=== PATIENT | male | born 1960 | race Caucasian/White ===

== ENCOUNTER 2017-02-26 07:35 | Day surgery (SDC) | payer MEDICARE, MEDICAID ==
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
[~2017-02-26 07:35] MED LIST: Dexamethasone 4 MG/ML SDV ONE; EPINEPHrine 1 MG/ML 30 ML MDV ONE; EPINEPHrine 1 MG/ML SDV ONE; Lactated Ringers 1,000 ML IV SCH; Lactated Ringers 1,000 ML ONE; Lidocaine 1% 4 ML ONE; Lidocaine 1%/Sod Bicarbonate in NS 8.4% 1 ML Syringe IV PRN; Midazolam 1 MG/ML 2 ML SDV ONE; Ondansetron 4 MG/2 ML SDV ONE; Propofol 200 MG/20 ML SDV ONE; Ropivacaine 0.5% 5 MG/ML 30 ML SDV ONE; Sodium Chloride 0.9% 10 ML Syringe FLUSH PRN; ceFAZolin 1 GM Vial ONE; fentaNYL 250 MCG/5 ML SDV ONE
[2017-02-26] MEDS ORDERED: Bupivacaine 0.25% 30 ML SDV ONE (08:19)
[2017-02-26] MEDS ORDERED: Albuterol 0.083% 2.5 MG/3 ML Neb Soln NEB ONE (08:33)
[2017-02-26] MEDS ORDERED: Ketamine 500 mg/10 ML MDV ONE (08:47)
[2017-02-26] MEDS ORDERED: HYDROmorphone 1 MG/ML Syringe ONE (09:27)
[2017-02-26] MEDS ORDERED: Haloperidol Lactate 5 MG/ML SDV IVPUSH ONE (10:25)
[2017-02-26] MEDS ORDERED: fentaNYL 100 MCG/2 ML SDV IVPUSH PRN (10:25)
[2017-02-26] MEDS ORDERED: HYDROmorphone 0.5 MG/0.5 ML Syringe IVPUSH PRN (10:25)
--- NOTE | 2017-02-26 10:45 | PCM.SN ---
- Free Text/Narrative Note: Anesthesia Note: (Interscalene block note) (Dr. Muñoz present for the block) Date: 02/26/2017 Time Out: 0826 Start: 0815 Stop: 0840 Surgical Procedure: Right Shoulder Video Arthroscopy with Rotator Cuff Repair, Subacromial Decompression. Diagnosis: Right Shoulder Rotator Cuff Tear Current Procedure: Right interscalene block under US guidance for postoperative pain control requested by Dr. Greenberg. Patient chart reviewed, risk/benefits discussed with patient, consent obtained. Patient positioned supine, monitors/alarms on, oxygen placed via nasal cannula at 2 LPM. IV sedation administered: Versed 2mg IV @ 0828 Fentanyl 50 mcg IV @ 0829 Right shoulder prepped with two chloropreps. Sterile drapes placed with aseptic technique noted. Under US guidance, right subclavian artery visualized along with the right brachial plexus. Plexus followed up to C6 cricoid level, and area localized with 2mls of 1% lidocaine. 22gauge 2 inch stimiplex needle advanced under US with 0.5mV with stimulation of biceps noted. Good stimulation noted with decreased voltage and absent at 0.2mVs. 1ml of Normal Saline injected with loss of stimulation noted to confirm needle not placed intraneurally. Incremental dosing of 5mls with negative aspiration noted prior to each injection of 0.5% ropivacaine with 1:200,000 epinephrine. Total volume=25mls. Vital Signs: HR: 67 RR: 18 BP: 133/86 Spo2: 98% on 2 LPM nasal cannula HR: 67 RR: 21 BP: 145/85 Spo2: 97% on 2LPM nasal cannula HR: 66 RR: 21 BP: 145/85 Spo2: 98% on 2 LPM nasal cannula
--- NOTE | 2017-02-26 12:04 | PCM.POSTAN ---
POST ANESTHESIA ASSESSMENT - MENTAL STATUS Mental Status: Alert, Oriented - VITAL SIGNS Pulse Rate: 88 SaO2: 97 Resp Rate: 19 Blood Pressure: 172/98 Temperature: 36.9 C - RESPIRATORY Respiratory Status: Respiratory Rate WNL, Airway Patent, O2 Saturation Stable, Supplemental Oxygen - CARDIOVASCULAR CV Status: Pulse Rate WNL, Blood Pressure Stable - GASTROINTESTINAL GI Status: No Symptoms - PAIN Pain Score: 0 - POST OP HYDRATION Hydration Status: Adequate & Stable
--- NOTE | 2017-02-26 12:04 | PCM48HPAN ---
Post Anesthesia Note - EVALUATION WITHIN 48HRS OF ANESTHETIC Vital Signs in Normal Range: Yes Patient Participated in Evaluation: Yes Respiratory Function Stable: Yes Airway Patent: Yes Cardiovascular Function Stable: Yes Hydration Status Stable: Yes Pain Control Satisfactory: Yes Nausea and Vomiting Control Satisfactory: Yes Mental Status Recovered: Yes
[2017-02-26 12:56] VITALS: BP 135/93
--- NOTE | 2017-03-03 05:09 | PCM.OPNOTE ---
- General Post-Op/Procedure Note Date of Surgery/Procedure: 02/26/17 Operative Procedure(s): right shoulder video arthroscopy with small rotator cuff repair, subacromial decompression and limited debridement Pre Op Diagnosis: right shoulder rotator cuff tear Post-Op Diagnosis: Same Anesthesia Technique: General ET Tube, Regional Block Primary Surgeon: Reggie Greenberg Anesthesia Provider: Rosey Donaldson Deck Scaler: Kathy Campbell EBL in mLs: 5 Complications: None Condition: Good
--- NOTE | 2017-03-03 05:51 | OR ---
DATE OF OPERATION: 02/26/2017 SURGEON: Reggie Greenberg MD OPERATION PERFORMED: Right shoulder video arthroscopy with small rotator cuff repair, subacromial decompression, and limited debridement. PREOPERATIVE DIAGNOSIS: Right shoulder rotator cuff tear. POSTOPERATIVE DIAGNOSIS: Right shoulder rotator cuff tear. ANESTHESIA: General endotracheal intubation with regional interscalene block. ANESTHESIA PROVIDER: Graciela Keene. TIP INSERTER: Kathy Campbell PA-C. ESTIMATED BLOOD LOSS: Less than 5 mL. COMPLICATIONS: None. CONDITION: Stable. DESCRIPTION OF PROCEDURE: The patient was identified in the preoperative holding area. Proper site was marked and signed by the surgeon. The patient was taken back to the operating theater, where after adequate anesthesia, the patient's right upper extremity had 15 pounds of traction applied and was sterilely prepped and draped in the usual sterile fashion. OR-wide time-out was performed. The patient received 2 grams of IV Ancef. At this time, standard posterior incision was made. The scope trocar was introduced into the glenohumeral joint. The patient was noted to have significant synovitis, and there was a small rotator cuff tear noted at the supraspinatus tendon. Anterior portal was then created. The biceps tendon was intact. Subscapularis tendon was intact. There was no sign of chondromalacia noted. At this time, debridement was done of the synovitis. At this time, attention was turned to the subacromial space. A lateral portal was created and a limited debridement of the bursa was carried out in the subacromial space. The patient was noted to have a type-2 acromion. At this time, with a 4-0 full-radius bur, I was able to bring this to a smooth border with type 1 acromion performing an acromioplasty at this time. After this was completed, there was noted to be a small tear at the footprint of the supraspinatus. At this time, it was more at the edge of the footprint and tendon junction. At this time, a FiberTape was passed in a horizontal mattress stitch fashion. This was placed through an Arthrex 4.75 mm SwiveLock anchor and then this was placed out laterally and found to be secure. There was adequate watertight repair of the small rotator cuff tear of the supraspinatus. At this time, excess saline was drained from the shoulder. 3-0 nylon simple suture was used for closure of the skin. The patient was placed in a sterile soft dressing and a pillow sling, and sent to the PACU in a stable condition. ROSA MARIA /[id number]
== END 2017-02-26 12:40 | disposition home or self-care (01) ==
LOC: JD.SDS 07:35
PROVIDERS: ATTEND Orthopaedic Surgery
DX: M75.111 Incomplete rotator cuff tear or rupture of right shoulder, not specified as traumatic (principal); M65.811 Other synovitis and tenosynovitis, right shoulder; M19.90 Unspecified osteoarthritis, unspecified site; J44.9 Chronic obstructive pulmonary disease, unspecified; E78.1 Pure hyperglyceridemia; I10 Essential (primary) hypertension; E87.1 Hypo-osmolality and hyponatremia; E11.9 Type 2 diabetes mellitus without complications; F32.9 Major depressive disorder, single episode, unspecified; F41.9 Anxiety disorder, unspecified; F17.210 Nicotine dependence, cigarettes, uncomplicated; Z90.49 Acquired absence of other specified parts of digestive tract; Z98.1 Arthrodesis status; Z98.890 Other specified postprocedural states; Z79.899 Other long term (current) drug therapy; Z79.82 Long term (current) use of aspirin; Z88.8 Allergy status to other drugs, medicaments and biological substances; Z88.1 Allergy status to other antibiotic agents; Z88.6 Allergy status to analgesic agent
CPT/HCPCS: 29826; 29827; 82962; 87641; 94640; J0171; J0690; J1100; J1170; J2250; J2405; J2795; J3010; J3490; J7120; 01630; 64415; J2001; J2704

== ENCOUNTER 2017-03-15 04:23 | Emergency (ER) | payer MEDICARE, MEDICAID ==
[2017-03-15 04:37] VITALS: BP 149/90
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
== END 2017-03-15 05:10 | disposition home or self-care (01) ==
LOC: JD.ED 04:23
DX: G89.18 Other acute postprocedural pain (principal); M25.511 Pain in right shoulder; E11.9 Type 2 diabetes mellitus without complications; I10 Essential (primary) hypertension; F17.210 Nicotine dependence, cigarettes, uncomplicated; E78.00 Pure hypercholesterolemia, unspecified; Z79.84 Long term (current) use of oral hypoglycemic drugs; Z88.1 Allergy status to other antibiotic agents; Z88.5 Allergy status to narcotic agent; Z88.8 Allergy status to other drugs, medicaments and biological substances; Z79.82 Long term (current) use of aspirin; Z79.899 Other long term (current) drug therapy
CPT/HCPCS: 99282; 99283

== ENCOUNTER 2017-05-12 08:58 | Day surgery (SDC) | payer MEDICARE, MEDICAID ==
[~2017-05-12 08:58] MED LIST changes: +Cefuroxime 10 MG/ML SYRINGE EYERT SCH; -Dexamethasone 4 MG/ML SDV ONE; -EPINEPHrine 1 MG/ML 30 ML MDV ONE; -EPINEPHrine 1 MG/ML SDV ONE; -Lactated Ringers 1,000 ML IV SCH; -Lactated Ringers 1,000 ML ONE; -Lidocaine 1% 4 ML ONE; +Lidocaine 1% PF 2 ML SDV INJECT SCH; -Lidocaine 1%/Sod Bicarbonate in NS 8.4% 1 ML Syringe IV PRN; -Midazolam 1 MG/ML 2 ML SDV ONE; -Ondansetron 4 MG/2 ML SDV ONE; +Pilocarpine 4% Ophth Soln 15 ML Bot EYERT SCH; -Propofol 200 MG/20 ML SDV ONE; -Ropivacaine 0.5% 5 MG/ML 30 ML SDV ONE; -Sodium Chloride 0.9% 10 ML Syringe FLUSH PRN; -ceFAZolin 1 GM Vial ONE; -fentaNYL 250 MCG/5 ML SDV ONE
[2017-05-12] MEDS: Polymyxin B/Trimethoprim 10 ML Bottle EYERT SCH ×3 (10:44→12:41)
[2017-05-12] MEDS: Brimonidine 0.2% Ophth Soln 5 ML Bottle EYERT SCH ×3 (10:52→12:41)
[2017-05-12] MEDS: Phenylephrine 2.5% Ophth Soln 2 ML Bot EYERT SCH ×5 (11:01→12:24)
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
[2017-05-12] MEDS: Tetracaine HCl/PF 0.5% 4 ML Bottle EYERT SCH ×3 (12:09→12:41)
[2017-05-12 12:50] VITALS: BP 158/90
--- NOTE | 2017-05-12 12:50 | PCM48HPAN ---
Post Anesthesia Note - EVALUATION WITHIN 48HRS OF ANESTHETIC Vital Signs in Normal Range: Yes Patient Participated in Evaluation: Yes Respiratory Function Stable: Yes Airway Patent: Yes Cardiovascular Function Stable: Yes Hydration Status Stable: Yes Pain Control Satisfactory: Yes Nausea and Vomiting Control Satisfactory: Yes Mental Status Recovered: Yes Pulse Rate: 65 SaO2: 96 Resp Rate: 16 Temperature: 36.8 C Blood Pressure: 158/90 Pulse Rate: 65
== END 2017-05-12 12:54 | disposition home or self-care (01) ==
LOC: JD.SDS 08:58
PROVIDERS: ATTEND Ophthalmology
DX: H25.813 Combined forms of age-related cataract, bilateral (principal); H02.834 Dermatochalasis of left upper eyelid; H02.831 Dermatochalasis of right upper eyelid; H16.103 Unspecified superficial keratitis, bilateral; H16.223 Keratoconjunctivitis sicca, not specified as Sjogren's, bilateral; E11.9 Type 2 diabetes mellitus without complications; M19.90 Unspecified osteoarthritis, unspecified site; J44.9 Chronic obstructive pulmonary disease, unspecified; I10 Essential (primary) hypertension; F17.210 Nicotine dependence, cigarettes, uncomplicated; F41.9 Anxiety disorder, unspecified; F32.9 Major depressive disorder, single episode, unspecified; E78.00 Pure hypercholesterolemia, unspecified; Z98.890 Other specified postprocedural states; Z90.49 Acquired absence of other specified parts of digestive tract; Z96.659 Presence of unspecified artificial knee joint; Z79.899 Other long term (current) drug therapy; Z79.84 Long term (current) use of oral hypoglycemic drugs; Z88.1 Allergy status to other antibiotic agents; Z88.8 Allergy status to other drugs, medicaments and biological substances
CPT/HCPCS: 66984; C1780; J0697; A9270-GY

== ENCOUNTER 2017-06-11 06:51 | Day surgery (SDC) | payer MEDICARE, MEDICAID ==
[~2017-06-11 06:51] MED LIST changes: +Cefuroxime 10 MG/ML SYRINGE EYELF SCH; -Cefuroxime 10 MG/ML SYRINGE EYERT SCH; +Pilocarpine 4% Ophth Soln 15 ML Bot EYELF SCH; -Pilocarpine 4% Ophth Soln 15 ML Bot EYERT SCH
[2017-06-11] MEDS: Polymyxin B/Trimethoprim 10 ML Bottle EYELF SCH ×3 (07:07→08:40)
[2017-06-11] MEDS: Brimonidine 0.2% Ophth Soln 5 ML Bottle EYELF SCH ×3 (07:13→08:40)
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
[2017-06-11] MEDS: Phenylephrine 2.5% Ophth Soln 2 ML Bot EYELF SCH ×5 (07:16→08:18)
[2017-06-11] MEDS: Tropicamide 1% Ophth Soln 3 ML Bottle EYELF SCH ×4 (07:21→08:03)
[2017-06-11] MEDS: Tetracaine HCl/PF 0.5% 4 ML Bottle EYELF SCH ×2 (08:08→08:32)
--- NOTE | 2017-06-11 08:47 | PCM48HPAN ---
Post Anesthesia Note - EVALUATION WITHIN 48HRS OF ANESTHETIC Vital Signs in Normal Range: Yes Patient Participated in Evaluation: Yes Respiratory Function Stable: Yes Airway Patent: Yes Cardiovascular Function Stable: Yes Hydration Status Stable: Yes Pain Control Satisfactory: Yes Nausea and Vomiting Control Satisfactory: Yes Mental Status Recovered: Yes Pulse Rate: 68 SaO2: 99 Resp Rate: 16 Temperature: 36.2 C Blood Pressure: 115/74
[2017-06-11 08:58] VITALS: BP 113/69
== END 2017-06-11 08:50 | disposition home or self-care (01) ==
LOC: JD.SDS 06:51
PROVIDERS: ATTEND Ophthalmology
DX: H26.9 Unspecified cataract (principal); I10 Essential (primary) hypertension; E11.9 Type 2 diabetes mellitus without complications; J44.9 Chronic obstructive pulmonary disease, unspecified; Z79.899 Other long term (current) drug therapy; Z88.1 Allergy status to other antibiotic agents; Z88.8 Allergy status to other drugs, medicaments and biological substances; F17.210 Nicotine dependence, cigarettes, uncomplicated
CPT/HCPCS: 66984; C1780; J0697; A9270-GY

== ENCOUNTER 2018-08-22 08:48 | Emergency (ER) | payer MEDICARE, OTHER ==
[2018-08-22] MEDS ORDERED: HYDROmorphone 1 MG/ML Syringe IM ONE (09:10)
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
[2018-08-22 10:11] VITALS: BP 151/92
--- NOTE | 2018-08-23 08:02 | CR ---
Left shoulder: Three views of the left shoulder were obtained. Comparison: No prior left shoulder imaging. Mild degenerative change is noted within the acromioclavicular joint. Glenohumeral joint appears within normal limits. No fracture, dislocation or other bony abnormality is appreciated. Impression: 1. Mild degenerative change within the acromioclavicular joint. 2. Nothing acute is appreciated on left shoulder imaging. Diagnostic code #2
== END 2018-08-22 10:01 | disposition home or self-care (01) ==
LOC: JD.ED 08:48
DX: S40.012A Contusion of left shoulder, initial encounter (principal); I10 Essential (primary) hypertension; F41.9 Anxiety disorder, unspecified; E11.9 Type 2 diabetes mellitus without complications; Z88.5 Allergy status to narcotic agent; Z88.8 Allergy status to other drugs, medicaments and biological substances; Z79.899 Other long term (current) drug therapy; Z90.49 Acquired absence of other specified parts of digestive tract; Z88.1 Allergy status to other antibiotic agents; W01.198A Fall on same level from slipping, tripping and stumbling with subsequent striking against other object, initial encounter
CPT/HCPCS: 73030; 96372; 99283; J1170

== ENCOUNTER 2019-08-14 20:12 | Emergency (ER) | payer MEDICARE, OTHER ==
[2019-08-14 20:27] VITALS: BP 156/103; PULSE 89
[2019-08-14] MEDS ORDERED: Insulin Regular, Human 100 Units/ML 3 ML Vial IV STA (21:07)
[2019-08-14] MEDS ORDERED: Lactated Ringers 1,000 ML IV ONE (21:07)
[2019-08-14] MEDS ORDERED: Diatrizoate Meglumine/Diatrizoate Sodium 37% 120 ML Bottle PO ONE (21:16)
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
[2019-08-14] MEDS ORDERED: Iopamidol 612 MG/ML 100 ML Bottle IVPUSH ONE (22:22)
[2019-08-14] MEDS ORDERED: Sodium Chloride 0.9% 10 ML Syringe FLUSH PRN (22:22)
[2019-08-14] MEDS ORDERED: Iopamidol 612 MG/ML 50 ML SDV IVPUSH ONE (22:26)
--- NOTE | 2019-08-15 07:28 | CR ---
Chest: 2 views of the chest were obtained. Comparison: Prior chest x-ray of 09/05/13. Calcification is noted within the right lung base which is stable. Lungs are clear with no acute parenchymal change. Bony structures shows degenerative endplate spurring within the spine. Heart size is within normal limits. Impression: 1. Stable calcification within the right lung base. 2. Nothing acute is appreciated. Diagnostic code #2 This report was dictated in MDT
--- NOTE | 2019-08-15 07:38 | CT ---
CT abdomen and pelvis Technique: Multiple axial sections were obtained from above the dome of the diaphragm inferiorly through the pubic symphysis. Intravenous and oral contrast was utilized. Delayed images were also obtained through the bladder. Comparison: No prior abdominal imaging. Findings: Calcification is identified within the right lung base measuring 1.5 cm which has a benign appearance. Liver contains no focal abnormality. Spleen appears within normal limits. Adrenal glands show no nodule. Kidneys show symmetric contrast enhancement without hydronephrosis. Small low density cortical lesion is noted within the mid right kidney measuring about 5 mm. This finding is too small to characterize by Hounsfield unit measurements but statistically is most likely due to a small cyst. Pancreas is within normal limits. Gallbladder contains no calcified gallstones. Aorta shows minimal atherosclerotic change without aneurysm. No retroperitoneal adenopathy or mesenteric abnormalities are seen. No pelvic mass or adenopathy is seen. Appendix is not visualized with certainty. Delayed images shows contrast within the distal ureters and within the bladder. Asymmetric prominence of the right seminal vesicle is seen as compared to the left side which I believe is incidental. Bone window settings were reviewed which shows previous surgery at L5-S1. Nothing acute is appreciated within the visualized osseous structures. Impression: 1. Findings as noted above believed to be incidental. 2. Nothing acute is identified on CT study of the abdomen and pelvis. Diagnostic code #2 This report was dictated in MDT I agree with preliminary report from [facility], finalized on 08/15/19, 12:03 AM Central Daylight Time
== END 2019-08-15 00:15 | disposition home or self-care (01) ==
LOC: JD.ED 20:12
DX: E11.65 Type 2 diabetes mellitus with hyperglycemia (principal); E78.00 Pure hypercholesterolemia, unspecified; I10 Essential (primary) hypertension; F41.9 Anxiety disorder, unspecified; E66.9 Obesity, unspecified; F17.210 Nicotine dependence, cigarettes, uncomplicated; Z68.36 Body mass index [BMI] 36.0-36.9, adult; Z88.1 Allergy status to other antibiotic agents; Z88.8 Allergy status to other drugs, medicaments and biological substances; Z88.5 Allergy status to narcotic agent; Z79.899 Other long term (current) drug therapy; Z79.84 Long term (current) use of oral hypoglycemic drugs; Z79.82 Long term (current) use of aspirin
CPT/HCPCS: 36415; 36600; 71046; 74177; 80053; 81003; 82009; 82803; 82962; 83605; 83735; 85007; 85027; 93005; 96360; 96361; 99284; J1815; J7120; Q9963; Q9967; 93010

== ENCOUNTER 2020-02-16 18:13 | Emergency (ER) | payer MEDICARE, OTHER, MEDICAID ==
[2020-02-16 18:25] VITALS: BP 120/78; PULSE 88
--- NOTE | 2020-02-16 19:52 | CR ---
Bilateral knees: 4 views of both knees were obtained. 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 Lateral compartment of the left knee shows mild osteophyte. Osteophytes are noted off the left patella. Mild osteophyte is noted off the lateral right tibia. Small osteophyte is noted off the right patella. No acute fracture or other bony abnormality is appreciated. Impression: 1. Prior surgery with mild degenerative change. 2. Nothing acute is definitely appreciated. Diagnostic code #2
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
== END 2020-02-16 20:09 | disposition home or self-care (01) ==
LOC: JD.ED 18:13
DX: S80.01XA Contusion of right knee, initial encounter (principal); S80.02XA Contusion of left knee, initial encounter; E78.00 Pure hypercholesterolemia, unspecified; I10 Essential (primary) hypertension; J44.9 Chronic obstructive pulmonary disease, unspecified; F41.9 Anxiety disorder, unspecified; E11.9 Type 2 diabetes mellitus without complications; F17.210 Nicotine dependence, cigarettes, uncomplicated; E66.9 Obesity, unspecified; Z68.37 Body mass index [BMI] 37.0-37.9, adult; Z88.0 Allergy status to penicillin; Z88.1 Allergy status to other antibiotic agents; Z88.5 Allergy status to narcotic agent; Z88.8 Allergy status to other drugs, medicaments and biological substances; Z79.82 Long term (current) use of aspirin; Z79.4 Long term (current) use of insulin; Z79.899 Other long term (current) drug therapy; W22.8XXA Striking against or struck by other objects, initial encounter; Y93.01 Activity, walking, marching and hiking
CPT/HCPCS: 735642650; 73564-50; 99283-25

== ENCOUNTER 2021-02-11 16:52 | Emergency (ER) | payer MEDICARE, OTHER ==
[2021-02-11] MEDS ORDERED: Sodium Chloride 0.9% 10 ML Syringe FLUSH PRN (16:59)
[2021-02-11 17:02] VITALS: BP 111/75; PULSE 88
--- NOTE | 2021-02-11 17:36 | CR ---
Chest: Portable view of the chest was obtained. Comparison: Prior chest x-ray of 08/14/19. Stable granuloma is noted within the right lung base. A portion of the inferior left lung base was not included on this exam. Lungs otherwise are clear. Heart size and mediastinum are normal. Prior cervical spine surgery is seen. Impression: 1. Stable findings as described above. 2. Nothing acute is seen on portable chest x-ray. Diagnostic code #2
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
== END 2021-02-11 17:55 | disposition left against medical advice (07) ==
LOC: JD.ED 16:52
DX: R07.9 Chest pain, unspecified (principal); E78.00 Pure hypercholesterolemia, unspecified; I10 Essential (primary) hypertension; J44.9 Chronic obstructive pulmonary disease, unspecified; E11.9 Type 2 diabetes mellitus without complications; E66.9 Obesity, unspecified; Z68.36 Body mass index [BMI] 36.0-36.9, adult; Z72.0 Tobacco use; Z88.0 Allergy status to penicillin; Z88.1 Allergy status to other antibiotic agents; Z88.5 Allergy status to narcotic agent; Z88.6 Allergy status to analgesic agent; Z88.8 Allergy status to other drugs, medicaments and biological substances; Z79.82 Long term (current) use of aspirin; Z79.4 Long term (current) use of insulin; Z79.899 Other long term (current) drug therapy
CPT/HCPCS: 71045; 71045-26; 93005; 93010; 99284; 99285-25

== ENCOUNTER 2021-08-04 10:29 | Emergency (ER) | payer OTHER, MEDICARE ==
[2021-08-04 10:37] VITALS: BP 139/94; PULSE 86
[2021-08-04 11:19] LABS: ESTIMATED GFR > 60 mL/min (>60)
== END 2021-08-04 12:15 ==
LOC: JD.ED 10:29
DX: R07.89 Other chest pain (principal); J44.9 Chronic obstructive pulmonary disease, unspecified; E78.00 Pure hypercholesterolemia, unspecified; I10 Essential (primary) hypertension; E11.9 Type 2 diabetes mellitus without complications; E66.9 Obesity, unspecified; Z68.30 Body mass index [BMI] 30.0-30.9, adult; Z79.899 Other long term (current) drug therapy; Z79.82 Long term (current) use of aspirin; Z79.4 Long term (current) use of insulin; Z90.49 Acquired absence of other specified parts of digestive tract; Z88.0 Allergy status to penicillin; Z88.5 Allergy status to narcotic agent; Z88.8 Allergy status to other drugs, medicaments and biological substances; Z88.6 Allergy status to analgesic agent; V49.40XA Driver injured in collision with unspecified motor vehicles in traffic accident, initial encounter; Y92.410 Unspecified street and highway as the place of occurrence of the external cause
CPT/HCPCS: 36415; 70450; 70450-26; 71101-26-RT; 71101-RT; 72170; 72170-26; 80053; 80306; 80307; 85025; 99283; 99285-25

== ENCOUNTER 2021-08-05 12:31 | Emergency (ER) | payer OTHER, MEDICARE ==
[2021-08-05] MEDS ORDERED: Sodium Chloride 0.9% 10 ML Syringe FLUSH PRN ×2 (13:09→13:13)
[2021-08-05] MEDS ORDERED: HYDROmorphone 0.5 MG/0.5 ML Syringe IVPUSH ONE (13:10)
[2021-08-05] MEDS ORDERED: Iopamidol 612 MG/ML 100 ML Bottle IVPUSH ONE (13:13)
[2021-08-05] MEDS ORDERED: Iopamidol 612 MG/ML 50 ML SDV IVPUSH ONE (13:13)
[2021-08-05 13:48] LABS: ESTIMATED GFR > 60 mL/min (>60)
[2021-08-05 14:04] VITALS: BP 109/78; PULSE 64
== END 2021-08-05 15:00 | disposition home or self-care (01) ==
LOC: JD.ED 12:31
DX: S22.41XA Multiple fractures of ribs, right side, initial encounter for closed fracture (principal); E78.00 Pure hypercholesterolemia, unspecified; I10 Essential (primary) hypertension; J44.9 Chronic obstructive pulmonary disease, unspecified; E11.9 Type 2 diabetes mellitus without complications; F17.210 Nicotine dependence, cigarettes, uncomplicated; E66.9 Obesity, unspecified; Z68.30 Body mass index [BMI] 30.0-30.9, adult; Z88.0 Allergy status to penicillin; Z88.8 Allergy status to other drugs, medicaments and biological substances; Z88.5 Allergy status to narcotic agent; Z79.82 Long term (current) use of aspirin; Z79.4 Long term (current) use of insulin; V49.40XA Driver injured in collision with unspecified motor vehicles in traffic accident, initial encounter; Y92.410 Unspecified street and highway as the place of occurrence of the external cause
CPT/HCPCS: 36415; 70450; 71260; 72125; 74177; 80053; 83690; 85025; 96374; 99284; J1170; J3490; Q9967

== ENCOUNTER 2021-08-08 11:39 | Emergency (ER) | payer OTHER, MEDICARE ==
[2021-08-08 11:47] VITALS: BP 118/79; PULSE 68
[2021-08-08] MEDS ORDERED: Dextrose 5%-0.9% NaCl 1,000 ML IV SCH (12:15)
[2021-08-08 13:09] LABS: HEMOGLOBIN A1C 7.6 %
== END 2021-08-08 14:00 | disposition home or self-care (01) ==
LOC: JD.ED 11:39
DX: S22.41XA Multiple fractures of ribs, right side, initial encounter for closed fracture (principal); E78.00 Pure hypercholesterolemia, unspecified; I10 Essential (primary) hypertension; J44.9 Chronic obstructive pulmonary disease, unspecified; E11.9 Type 2 diabetes mellitus without complications; Z88.0 Allergy status to penicillin; Z88.5 Allergy status to narcotic agent; Z88.8 Allergy status to other drugs, medicaments and biological substances; Z79.82 Long term (current) use of aspirin; Z79.899 Other long term (current) drug therapy; Z79.4 Long term (current) use of insulin; V89.2XXA Person injured in unspecified motor-vehicle accident, traffic, initial encounter; Y92.410 Unspecified street and highway as the place of occurrence of the external cause
CPT/HCPCS: 36415; 70450; 71250; 80053; 81001; 83036; 83735; 83880; 85025; 86140; 93005; 96360; 99284; J7042

== ENCOUNTER 2021-11-09 05:30 | Emergency (ER) | payer MEDICARE, OTHER ==
[2021-11-09 05:45] VITALS: BP 177/105; PULSE 92
[2021-11-09] MEDS ORDERED: HYDROmorphone 0.5 MG/0.5 ML Syringe IVPUSH ONE ×2 (06:12→08:35)
[2021-11-09] MEDS ORDERED: Ondansetron 4 MG/2 ML SDV IVPUSH ONE (06:12)
[2021-11-09] MEDS ORDERED: Sodium Chloride 0.9% 1,000 ML IV SCH (06:15)
[2021-11-09] MEDS ORDERED: Iopamidol 612 MG/ML 100 ML Bottle IVPUSH ONE (06:38)
[2021-11-09] MEDS ORDERED: Iopamidol 612 MG/ML 50 ML SDV IVPUSH ONE (06:38)
[2021-11-09 07:12] LABS: ESTIMATED GFR 100 mL/min (>60)
== END 2021-11-09 08:48 | disposition home or self-care (01) ==
LOC: JD.ED 05:30
DX: S22.41XA Multiple fractures of ribs, right side, initial encounter for closed fracture (principal); J44.9 Chronic obstructive pulmonary disease, unspecified; E78.00 Pure hypercholesterolemia, unspecified; I10 Essential (primary) hypertension; E11.9 Type 2 diabetes mellitus without complications; F17.210 Nicotine dependence, cigarettes, uncomplicated; E66.9 Obesity, unspecified; Z68.34 Body mass index [BMI] 34.0-34.9, adult; Z88.1 Allergy status to other antibiotic agents; Z88.5 Allergy status to narcotic agent; Z88.8 Allergy status to other drugs, medicaments and biological substances; Z88.6 Allergy status to analgesic agent; Z79.82 Long term (current) use of aspirin; Z79.4 Long term (current) use of insulin; Z90.49 Acquired absence of other specified parts of digestive tract; W08.XXXA Fall from other furniture, initial encounter
CPT/HCPCS: 36415; 70450; 71260; 72125; 74177; 80053; 85025; 96361; 96374; 96375; 96376; 99284; J1170; J2405; J7030; Q9967

== ENCOUNTER 2022-07-15 19:58 | Emergency (ER) | payer MEDICARE ==
[2022-07-15 20:13] VITALS: BP 118/80; PULSE 86
== END 2022-07-15 21:33 | disposition left against medical advice (07) ==
LOC: JD.ED 19:58
DX: S81.802A Unspecified open wound, left lower leg, initial encounter (principal); F10.929 Alcohol use, unspecified with intoxication, unspecified; F17.210 Nicotine dependence, cigarettes, uncomplicated; I10 Essential (primary) hypertension; J44.9 Chronic obstructive pulmonary disease, unspecified; E11.42 Type 2 diabetes mellitus with diabetic polyneuropathy; E66.9 Obesity, unspecified; Z88.0 Allergy status to penicillin; Z88.1 Allergy status to other antibiotic agents; Z88.5 Allergy status to narcotic agent; Z88.8 Allergy status to other drugs, medicaments and biological substances; Z88.6 Allergy status to analgesic agent; Z79.82 Long term (current) use of aspirin; Z79.4 Long term (current) use of insulin; Z79.899 Other long term (current) drug therapy
CPT/HCPCS: 82947; 99284

== ENCOUNTER 2023-10-07 15:02 | Emergency (ER) | payer MEDICARE, OTHER ==
[2023-10-07 15:24] VITALS: PULSE 99
[2023-10-07 15:33] LABS: BASOPHILS PERCENT AUTO 0.4 % (0.0-1.0); EOSINOPHILS ABSOLUTE AUTO 0.3 K/mm3 (0.0-0.4); EOSINOPHILS PERCENT AUTO 3.3 % (0.0-6.0); HEMATOCRIT 40.6 % (42.0-52.0); HEMOGLOBIN 14.1 gm/dl (14.0-18.0); IMMATURE GRAN ABSOLUTE AUTO 0.03 K/mm3 (0.00-0.05); IMMATURE GRAN PERCENT AUTO 0.3 % (0.0-0.4); LYMPHOCYTES ABSOLUTE AUTO 2.3 K/mm3 (1.0-4.8); LYMPHOCYTES PERCENT AUTO 25.7 % (24.0-44.0); MEAN CORPUSCULAR HEMOGLOBIN 30.7 pg (28.0-32.0); MEAN CORPUSCULAR HGB CONC 34.7 g/dl (32.0-36.0); MEAN CORPUSCULAR VOLUME 88.5 fl (83.0-99.0); MEAN PLATELET VOLUME 9.2 fl (9.4-12.4); MONOCYTES ABSOLUTE AUTO 0.7 K/mm3 (0.0-0.8); MONOCYTES PERCENT AUTO 7.6 % (0.0-8.0); NEUTROPHILS ABSOLUTE AUTO 5.6 K/mm3 (1.8-7.7); NEUTROPHILS PERCENT AUTO 62.7 % (41.0-71.0); PLATELET COUNT,PLT 240 K/mm3 (150-400); RED BLOOD CELL COUNT 4.59 M/mm3 (4.52-5.90); WHITE BLOOD CELL COUNT,WBC 8.98 K/mm3 (3.9-11.3)
[2023-10-07] MEDS: Sodium Chloride 0.9% 10 ML Syringe FLUSH PRN (15:44)
[2023-10-07] MEDS: Sodium Chloride 0.9% 1,000 ML IV ONE (15:44)
[2023-10-07 15:48] VITALS: BP 127/98
[2023-10-07 16:05] LABS: INR 0.99; PROTHROMBIN TIME 10.5 SECONDS (9.7-12.0)
[2023-10-07 16:06] LABS: PTT,PARTIAL THROMBOPLSTIN TIME 26.8 SECONDS (21.7-31.4)
[2023-10-07 16:11] LABS: A/G RATIO 1.2 (1-2); ALBUMIN 3.8 g/dl (3.4-5.0); BILIRUBIN TOTAL 0.6 mg/dL (0.2-1.0); BUN/CREATININE RATIO 12.9 (14-18); CALCIUM 9.2 mg/dL (8.5-10.1); CREATININE 0.7 mg/dL (0.7-1.3); EST CRCL DRUG DOSING (CG) 103.14 mL/min; MAGNESIUM 2.1 mg/dL (1.8-2.4); PROTEIN TOTAL,TP 6.9 g/dl (6.4-8.2)
[2023-10-07 17:10] LABS: APPEARANCE,URINE CLEAR (Clear); BILIRUBIN,URINE NEGATIVE (Negative); COLOR,URINE YELLOW (Yellow); GLUCOSE,URINE NEGATIVE (Negative); KETONES,URINE NEGATIVE (Negative); LEUKOCYTE ESTERASE,URINE NEGATIVE (Negative); NITRITE,URINE NEGATIVE (Negative); OCCULT BLOOD,URINE 1+ (Negative); PROTEIN,URINE NEGATIVE (Negative); UROBILINOGEN,URINE 0.2 (0.2-1.0)
[2023-10-07 17:20] LABS: BACTERIA,URINE FEW /hpf (FEW); MUCUS,URINE FEW /hpf (FEW); RENAL EPITHELIAL CELLS,URINE 0-5 /hpf (0-5); SQUAMOUS EPITHELIAL CELLS,UR 0-5 /hpf (0-5); WBC,URINE 0-5 /hpf (0-5)
[2023-10-07 17:21] LABS: BARBITURATE SCREEN,URINE NEGATIVE (CUTOFF=200); BENZODIAZEPINES SCREEN,URINE PRESUMPTIVE POSITIVE (CUTOFF=150); BUPRENORPHINE SCREEN,URINE NEGATIVE (CUTOFF=10); METHADONE SCREEN, URINE NEGATIVE (CUT0FF=200); METHAMPHETAMINES SCREEN, URINE NEGATIVE (CUTOFF=500); OXYCODONE SCREEN,URINE NEGATIVE (CUT0FF=100); THC SCREEN,URINE 20 NG/ML PRESUMPTIVE POSITIVE (CUTOFF=50)
[2023-10-07 17:22] LABS: AMPHETAMINES SCREEN, URINE NEGATIVE (CUTOFF=500)
[2023-10-07 17:59] LABS: TSH 1.43 uIU/mL (0.358-3.74)
== END 2023-10-07 18:20 | disposition home or self-care (01) ==
LOC: JD.ED 15:02
DX: S40.021A Contusion of right upper arm, initial encounter (principal); E78.00 Pure hypercholesterolemia, unspecified; I10 Essential (primary) hypertension; J44.9 Chronic obstructive pulmonary disease, unspecified; E11.9 Type 2 diabetes mellitus without complications; E66.9 Obesity, unspecified; Z79.82 Long term (current) use of aspirin; Z79.899 Other long term (current) drug therapy; Z88.1 Allergy status to other antibiotic agents; Z88.8 Allergy status to other drugs, medicaments and biological substances; W19.XXXA Unspecified fall, initial encounter
CPT/HCPCS: 36415; 70450; 71045; 80053; 80306; 80307; 81001; 82947; 83735; 84443; 84484; 85025; 85610; 85730; 93005; 96360; 96361; 99285; C1758; J3490; J7030; 93010; 99284

== ENCOUNTER 2024-04-11 05:22 | Emergency (ER) | payer MEDICARE, OTHER ==
[2024-04-11] MEDS: Acetaminophen/HYDROcodone 325-5 MG Tab PO ONE (05:50)
[2024-04-11 05:59] VITALS: BP 153/79; PULSE 81
[2024-04-11] MEDS: Bacitracin/Neomycin/Polymyxin B Oint 15 GM Tube TOP ONE (06:30)
[2024-04-11] MEDS: Lidocaine 1% 50 ML MDV INJECT ONE (06:32)
[2024-04-11] MEDS: Lidocaine 1% 10 ML MDV ONE (06:32)
== END 2024-04-11 06:27 | disposition home or self-care (01) ==
LOC: JD.ED 05:22
DX: S61.012A Laceration without foreign body of left thumb without damage to nail, initial encounter (principal); I10 Essential (primary) hypertension; E78.00 Pure hypercholesterolemia, unspecified; J44.9 Chronic obstructive pulmonary disease, unspecified; E11.9 Type 2 diabetes mellitus without complications; E66.9 Obesity, unspecified; Z68.34 Body mass index [BMI] 34.0-34.9, adult; Z90.49 Acquired absence of other specified parts of digestive tract; Z88.0 Allergy status to penicillin; Z88.5 Allergy status to narcotic agent; Z88.8 Allergy status to other drugs, medicaments and biological substances; Z79.82 Long term (current) use of aspirin; Z79.899 Other long term (current) drug therapy; W25.XXXA Contact with sharp glass, initial encounter
CPT/HCPCS: 99282; A9270; J2003; 12001

== ENCOUNTER 2024-04-14 02:50 | Emergency (ER) | payer MEDICARE ==
[2024-04-14 03:10] VITALS: BP 144/84; PULSE 75
[2024-04-14 03:40] LABS: BASOPHILS ABSOLUTE AUTO 0.1 K/mm3 (0.0-0.2); BASOPHILS PERCENT AUTO 0.7 % (0.0-1.0); EOSINOPHILS ABSOLUTE AUTO 0.3 K/mm3 (0.0-0.4); EOSINOPHILS PERCENT AUTO 2.9 % (0.0-6.0); HEMATOCRIT 36.7 % (42.0-52.0); HEMOGLOBIN 12.4 gm/dl (14.0-18.0); IMMATURE GRAN ABSOLUTE AUTO 0.02 K/mm3 (0.00-0.05); IMMATURE GRAN PERCENT AUTO 0.2 % (0.0-0.4); LYMPHOCYTES ABSOLUTE AUTO 3.2 K/mm3 (1.0-4.8); LYMPHOCYTES PERCENT AUTO 31.7 % (24.0-44.0); MEAN CORPUSCULAR HEMOGLOBIN 31.6 pg (28.0-32.0); MEAN CORPUSCULAR HGB CONC 33.8 g/dl (32.0-36.0); MEAN CORPUSCULAR VOLUME 93.6 fl (83.0-99.0); MEAN PLATELET VOLUME 9.3 fl (9.4-12.4); MONOCYTES PERCENT AUTO 9.8 % (0.0-8.0); NEUTROPHILS ABSOLUTE AUTO 5.5 K/mm3 (1.8-7.7); NEUTROPHILS PERCENT AUTO 54.7 % (41.0-71.0); PLATELET COUNT,PLT 302 K/mm3 (150-400); RED BLOOD CELL COUNT 3.92 M/mm3 (4.52-5.90)
[2024-04-14 03:41] LABS: APPEARANCE,URINE CLEAR (Clear); BILIRUBIN,URINE NEGATIVE (Negative); COLOR,URINE YELLOW (Yellow); GLUCOSE,URINE NEGATIVE (Negative); KETONES,URINE 1+ (Negative); LEUKOCYTE ESTERASE,URINE NEGATIVE (Negative); NITRITE,URINE NEGATIVE (Negative); OCCULT BLOOD,URINE NEGATIVE (Negative); PH,URINE 5.5 (5.0-8.0); PROTEIN,URINE NEGATIVE (Negative); UROBILINOGEN,URINE 0.2 (0.2-1.0)
[2024-04-14 03:56] LABS: BARBITURATE SCREEN,URINE NEGATIVE (CUTOFF=200); BENZODIAZEPINES SCREEN,URINE PRESUMPTIVE POSITIVE (CUTOFF=150); BUPRENORPHINE SCREEN,URINE NEGATIVE (CUTOFF=10); METHADONE SCREEN, URINE NEGATIVE (CUT0FF=200); METHAMPHETAMINES SCREEN, URINE NEGATIVE (CUTOFF=500); OXYCODONE SCREEN,URINE NEGATIVE (CUT0FF=100); THC SCREEN,URINE 20 NG/ML PRESUMPTIVE POSITIVE (CUTOFF=50)
[2024-04-14 03:59] LABS: AMPHETAMINES SCREEN, URINE NEGATIVE (CUTOFF=500)
[2024-04-14 04:04] LABS: A/G RATIO 1.2 (1-2); ALBUMIN 3.9 g/dl (3.4-5.0); ANION GAP 13.1 (5-15); BILIRUBIN TOTAL 0.4 mg/dL (0.2-1.0); BUN/CREATININE RATIO 16.3 (14-18); CALCIUM 9.2 mg/dL (8.5-10.1); CREATININE 0.8 mg/dL (0.7-1.3); EST CRCL DRUG DOSING (CG) 90.25 mL/min; POTASSIUM,K 4.1 mEq/L (3.5-5.1); PROTEIN TOTAL,TP 7.1 g/dl (6.4-8.2)
== END 2024-04-14 04:50 | disposition home or self-care (01) ==
LOC: JD.ED 02:50
DX: F12.10 Cannabis abuse, uncomplicated (principal); I10 Essential (primary) hypertension; E78.00 Pure hypercholesterolemia, unspecified; J44.9 Chronic obstructive pulmonary disease, unspecified; E11.9 Type 2 diabetes mellitus without complications; E66.9 Obesity, unspecified; F17.210 Nicotine dependence, cigarettes, uncomplicated; Z68.31 Body mass index [BMI] 31.0-31.9, adult; Z87.19 Personal history of other diseases of the digestive system; Z90.49 Acquired absence of other specified parts of digestive tract; Z88.0 Allergy status to penicillin; Z88.5 Allergy status to narcotic agent; Z88.8 Allergy status to other drugs, medicaments and biological substances; Z79.82 Long term (current) use of aspirin; Z79.899 Other long term (current) drug therapy
CPT/HCPCS: 36415; 80053; 80306; 80307; 81003; 83735; 85025; 93005; 93010; 99284; 99285

== ENCOUNTER 2024-07-07 09:08 | Emergency (ER) | payer MEDICARE ==
[2024-07-07 09:23] VITALS: BP 109/72; PULSE 68
[2024-07-07] MEDS: Sodium Chloride 0.9% 1,000 ML IV ONE (09:27)
[2024-07-07 09:36] LABS: BASOPHILS ABSOLUTE AUTO 0.1 K/mm3 (0.0-0.2); BASOPHILS PERCENT AUTO 0.5 % (0.0-1.0); EOSINOPHILS ABSOLUTE AUTO 0.4 K/mm3 (0.0-0.4); EOSINOPHILS PERCENT AUTO 3.3 % (0.0-6.0); HEMATOCRIT 44.1 % (42.0-52.0); IMMATURE GRAN ABSOLUTE AUTO 0.04 K/mm3 (0.00-0.05); IMMATURE GRAN PERCENT AUTO 0.3 % (0.0-0.4); LYMPHOCYTES ABSOLUTE AUTO 3.1 K/mm3 (1.0-4.8); LYMPHOCYTES PERCENT AUTO 27.1 % (24.0-44.0); MEAN CORPUSCULAR HEMOGLOBIN 30.9 pg (28.0-32.0); MEAN CORPUSCULAR HGB CONC 33.3 g/dl (32.0-36.0); MEAN CORPUSCULAR VOLUME 92.8 fl (83.0-99.0); MEAN PLATELET VOLUME 9.7 fl (9.4-12.4); MONOCYTES PERCENT AUTO 8.5 % (0.0-8.0); NEUTROPHILS ABSOLUTE AUTO 6.9 K/mm3 (1.8-7.7); NEUTROPHILS PERCENT AUTO 60.3 % (41.0-71.0); PLATELET COUNT,PLT 301 K/mm3 (150-400); RED BLOOD CELL COUNT 4.75 M/mm3 (4.52-5.90); WHITE BLOOD CELL COUNT,WBC 11.46 K/mm3 (3.9-11.3)
[2024-07-07 09:40] LABS: HEMOGLOBIN 14.7 gm/dl (14.0-18.0)
[2024-07-07 09:58] LABS: ALBUMIN 3.6 g/dl (3.4-5.0); ANION GAP 14.3 (5-15); BILIRUBIN TOTAL 0.3 mg/dL (0.2-1.0); BUN/CREATININE RATIO 17.5 (14-18); CREATININE 0.8 mg/dL (0.7-1.3); EST CRCL DRUG DOSING (CG) 89.06 mL/min; MAGNESIUM 2.1 mg/dL (1.8-2.4); POTASSIUM,K 4.3 mEq/L (3.5-5.1); PROTEIN TOTAL,TP 7.1 g/dl (6.4-8.2)
[2024-07-07 10:03] LABS: HEMOGLOBIN A1C 6.9 %
[2024-07-07] MEDS: Acetaminophen/oxyCODONE 325-5 MG Tab PO ONE (10:21)
== END 2024-07-07 10:35 | disposition home or self-care (01) ==
LOC: JD.ED 09:08
DX: E11.649 Type 2 diabetes mellitus with hypoglycemia without coma (principal); M54.50 Low back pain, unspecified; G89.29 Other chronic pain; I10 Essential (primary) hypertension; E78.00 Pure hypercholesterolemia, unspecified; J44.9 Chronic obstructive pulmonary disease, unspecified; E66.9 Obesity, unspecified; Z88.8 Allergy status to other drugs, medicaments and biological substances; Z90.49 Acquired absence of other specified parts of digestive tract; Z79.82 Long term (current) use of aspirin; Z79.899 Other long term (current) drug therapy; Z88.5 Allergy status to narcotic agent; Z88.0 Allergy status to penicillin; Z68.42 Body mass index [BMI] 45.0-49.9, adult
CPT/HCPCS: 36415; 71045; 80053; 82550; 83036; 83690; 83735; 85025; 96360; 99285; A9270; J7030; 99284